=== PATIENT | female | born 1980 | race Caucasian/White ===

== ENCOUNTER → 2021-01-02 | Day surgery (SDC) | payer OTHER ==
[~2021-01-02] MED LIST: ATROVENT HFA12.9 GM INH; BACTRIM DS TAB1 EACH PO; CELEXA10 MG PO; CETIRIZINE HCL10 MG PO; DIFLUCAN150 MG PO; DULERA 200 MCG8.8 GM INH; FLOMAX0.4 MG PO; HYDROCODON-ACE1 EAC4 PO; KEFLEX250 MG PO; KEFLEX500 MG PO; LISINOPRIL10 MG PO; MEDROL 4MG DOSEP4 MG PO; MEDROXYPRO150 MG/1 M IM; MONTELUKAST SOD10 MG PO; NEXIUM20 MG PO; NORCO 5-325 TA1 EACH PO; PERCOCET 7.5/321 TAB PO; SPIRIVA 18MCG18 MCG INH; ZPAK PO; ZYRTEC10 M3 PO
[2021-01-02 07:03] LABS: HCG (URINE) SCREEN NEGATIVE (NEGATIVE)
[2021-01-02 07:30] LABS: HCT 41.1 % (37.0-47.0); HGB 13.5 g/dl (12.5-16.0); MCH 29.2 pg (25.0-31.0); MCHC 32.8 g/dL (32.0-36.0); MCV 88.8 fL (78.0-100.0); MPV 11.1 fL (6.0-9.5); RBC 4.63 M/uL (4.20-5.40); WBC 6.8 K/uL (4.0-10.5)
[2021-01-02 07:52] LABS: BUN/CREAT RATIO (CALC) 19.2 RATIO; CREATININE 0.73 mg/dL (0.51-0.95); POTASSIUM 4.5 mmol/L (3.5-5.1)
== END | disposition home or self-care (01) ==
LOC: FAS 06:18
PROVIDERS: Legal Medicine
DX: M19.011 Primary osteoarthritis, right shoulder (principal); M75.41 Impingement syndrome of right shoulder; M75.101 Unspecified rotator cuff tear or rupture of right shoulder, not specified as traumatic; K58.9 Irritable bowel syndrome, unspecified; K21.9 Gastro-esophageal reflux disease without esophagitis; I10 Essential (primary) hypertension; F17.210 Nicotine dependence, cigarettes, uncomplicated; J45.909 Unspecified asthma, uncomplicated; F41.9 Anxiety disorder, unspecified; Z88.8 Allergy status to other drugs, medicaments and biological substances; Z88.1 Allergy status to other antibiotic agents; Z91.040 Latex allergy status
CPT/HCPCS: 36415; 80048; 84703; 93005; C1713; J0171; J0690; J0735; J1100; J1200; J1885; J2250; J2405; J2704; J2795; J7120